=== PATIENT | female | born 2000 ===

== ENCOUNTER 2023-05-14 07:25 | Inpatient (IN) ==
[2023-05-14] MEDS ORDERED: LACTATED RINGER'S 1,000 ML IV PRN (07:31)
[2023-05-14] MEDS ORDERED: OXYTOCIN 30 UNITS/500 ML BAG IV PRN ×2 (07:31→15:39)
[2023-05-14] MEDS ORDERED: LIDOCAINE 1% LOCAL 20 ML VIAL INFIL PRN (07:31)
[2023-05-14 08:08] LABS: Hematocrit (blood only) 32.5 % (37.0-47.0); Hemoglobin 10.7 g/dl (12.0-16.0); Mean Corpuscular Hemoglobin 26.2 pg (25.0-34.0); Mean Corpuscular Hgb Conc 32.9 g/dL (32.0-36.0); Mean Corpuscular Volume 79.5 fL (80.0-100.0); Mean Platelet Volume 10.4 fL (9.4-12.4); Platelet Count 270 K/uL (130-400); RDW Coefficient of Variation 14.5 % (11.5-14.5); RDW Standard Deviation 41.4 fL (36.4-46.3); Red Blood Count 4.09 M/uL (4.20-5.40); White Blood Count 11.02 K/ul (4.8-10.8)
--- NOTE | 2023-05-14 08:17 | Anesthesiology Consultation ---
Date of Service May 14, 2023 Assessment & Plan Chart Review Chart Review: Acceptable Risk for Surgery and Patient NOT seen in Pre Admission Testing Consults Requested none ASA ASA2 Proposed Anesthesia Anesthesia Type: Labor Epidural and CSE History Height/Weight Height: 5 ft 2 in Weight: 67.807 kg Allergies Allergy/AdvReac Type Severity Reaction Status Date / Time No Known Allergies Allergy Verified 05/08/23 11:55 Medications Home Medications Medication Instructions Recorded Confirmed Last Taken prenat.vits,raleigh,zui-tnev-unobr 1 tab PO DAILY 11/03/22 05/14/23 05/13/23 19:00 ferrous sulfate 325 mg (65 mg 325 mg PO DAILY 05/06/23 05/14/23 05/13/23 19:00 iron) tablet (Iron (ferrous sulfate)) Exercise / Class Metabolic Activity II 4-5 Yardwork/Stairs/Walk up hill Past Family History Family History Mother Hypertension Father Hypertension Other Diabetes Past Surgical History Surgical History History of arthroscopy of hip S/P tonsillectomy Past Anesthesia History No Hx of Anesthesia Complications and No Family Hx of Anesthesia Complications History of PONV No Hx of PONV and No Hx of Motion Sickness Social History Smoking Status: Never smoker Do You Dip or Chew Tobacco: No Hx Alcohol Use: No Hx Substance Use: No substance use type: does not use Physical Exam Vital Signs Last Vital Signs Temp 37.1 C 05/14/23 07:42 Pulse 89 05/14/23 07:42 Resp 24 05/14/23 07:42 BP 113/71 05/14/23 07:42 Testing Laboratory Results 05/14/23 07:44
--- NOTE | 2023-05-14 15:09 | Delivery Summary ---
Vaginal Delivery Summary Date of Service May 14, 2023 Vaginal Delivery Summary Spontaneous vaginal delivery the patient arrived in active labor and wish to be unmedicated she was admitted group B strep negative she progressed to fully dilated and over several contractions delivered a baby in occiput anterior position fluid was clear gentle traction no excessive force live vigorous female no nuchal cord Cord blood was obtained after delayed cord clamping second-degree tear was repaired with 3-0 Vicryl placenta was delivered with gentle traction IM Pitocin was given sponge and instrument counts correct estimated blood loss 250 mL
[2023-05-14] MEDS ORDERED: OXYTOCIN 10 UNITS/ML 10ML VIAL IM ONE (15:39)
[2023-05-14] MEDS ORDERED: HYDROCORTISONE ACETATE 25 MG SUPP PR PRN (15:39)
[2023-05-14] MEDS ORDERED: DIPHTHERIA/TETANUS/PERTUSSIS Vaccine (Tdap, Age 7+yrs) 0.5mL SYR/VL IM ONE (15:39)
[2023-05-14] MEDS ORDERED: bisacodyL 10 MG SUPP PR PRN (15:39)
[2023-05-14] MEDS ORDERED: oxyCODONE/ACETAMINOPHEN 5mg/325mg TAB PO PRN (15:39)
[2023-05-14] MEDS ORDERED: BENZOCAINE 20% SPRY 85 APPLN/85 GM CAN EXT PRN (15:39)
[2023-05-14] MEDS ORDERED: ACETAMINOPHEN 325 MG TAB PO PRN (15:39)
[2023-05-14] MEDS: DOCUSATE SODIUM 100 MG CAP PO SCH (20:56)
[2023-05-14] MEDS: IBUPROFEN 600 MG TAB PO PRN (22:39)
[2023-05-15] MEDS: IBUPROFEN 600 MG TAB PO PRN ×2 (05:19→18:09)
[2023-05-15 06:09] LABS: Hematocrit (blood only) 30.6 % (37.0-47.0); Mean Corpuscular Hemoglobin 25.6 pg (25.0-34.0); Mean Corpuscular Hgb Conc 32.7 g/dL (32.0-36.0); Mean Corpuscular Volume 78.3 fL (80.0-100.0); Mean Platelet Volume 10.3 fL (9.4-12.4); Platelet Count 250 K/uL (130-400); Red Blood Count 3.91 M/uL (4.20-5.40); White Blood Count 14.34 K/ul (4.8-10.8)
--- NOTE | 2023-05-15 06:30 | Obstetrical Progress Note ---
Date of Service <Han Katz MD - Last Filed: 05/15/23 10:45> May 15, 2023 Assessment & Plan <Han Katz MD - Last Filed: 05/15/23 10:45> (1) (spontaneous vaginal delivery): Plan Vital Signs reviewed and WNL. (Tmax at 37.3) Hemoglobin Reviewed. 10.7 (05/14/23) 10.0 (today). - Blood Type: AB+, GBS-, Rubella Immune. - Pt is doing well clinically. - Encourage Ambulation, Monitor and Control pain with Motrin PRN, Resume regular diet, Monitor Lochia Encourage Breast Feeding. Pt counselled on discharge instructions (only if they are going home that day). <Feliz Martinez MD, FACOG - Last Filed: 05/15/23 14:23> (1) (spontaneous vaginal delivery): Subjective <Han Katz MD - Last Filed: 05/15/23 10:45> Ambulation: ambulating normally Voiding: no voiding problems and no incontinence Passing Gas:: No (not yet) Diet Tolerance:: regular diet Lochia:: Small Feeding Type:: breast feeding Current Pain Level(1-10): 7 (motrin is helping; patient feels the pain the most during ) 22 yo F presents s/p day 1 with some cramping pain that gets worse during . Max temp 37.3 Review of Systems All systems reviewed & are unremarkable except as noted in HPI & below Respiratory: no dyspnea Cardiovascular: no chest pain or no palpitations Breast: no breast pain Gastrointestinal: no nausea or no vomiting Musculoskeletal: + back pain (lower pain, worse with lying down; pt did not have epidural) Integumentary: no rash Neurologic: no tingling or no numbness good, just tired Physical Exam <Han Katz MD - Last Filed: 05/15/23 10:45> Constitutional WD/WN, vitals as above Respiratory normal respiratory effort, lungs clear to auscultation Cardiovascular RRR, no murmur, no edema Gastrointestinal (Abdomen) normal bowel sounds, soft, nontender, no hepatosplenomegaly (mild uterine tenderness in suprapubic area) Musculoskeletal Extremities: extremities normal to inspection (no calf tenderness noted) Results & Data <Han Katz MD - Last Filed: 05/15/23 10:45> Vital Signs (Past 12 Hours) Vital Signs Temp Pulse Resp BP Pulse Ox O2 Del Method 05/15/23 04:30 36.9 C 77 16 97/63 L 99 Room Air 05/15/23 00:50 36.7 C 86 18 107/69 97 Room Air 05/14/23 20:00 36.9 C 93 H 18 106/69 99 Room Air <Feliz Martinez MD, FACOG - Last Filed: 05/15/23 14:23> Co-Signing Physician Notes Resident Physician Supervision Note: I was present with [Name of resident] during the history and exam. I discu ssed the case with the resident and agree with the findings and plan as documented in the note. Any exceptions or clarifications are listed here: [None] Documented By: Feliz Martinez MD, FACOG
[2023-05-15] MEDS: DOCUSATE SODIUM 100 MG CAP PO SCH ×2 (08:54→20:34)
[2023-05-15] MEDS: PRENATAL VITAMIN 1 TAB PO SCH (08:54)
[2023-05-15] MEDS ORDERED: bisacodyL 5 MG TABEC PO SCH (20:00)
--- NOTE | 2023-05-16 05:47 | Obstetrical Progress Note ---
Date of Service <Han Katz MD - Last Filed: 05/16/23 07:52> May 16, 2023 Assessment & Plan <Han Katz MD - Last Filed: 05/16/23 07:52> (1) (spontaneous vaginal delivery): Plan Vital Signs reviewed and WNL. (Tmax at 37.3) Hemoglobin Reviewed. 10.7 (05/14/23) 10.0 (05/15/23). - Blood Type: AB+, GBS-, Rubella Immune. - Pt is doing well clinically. - Encourage Ambulation, Monitor and Control pain with Motrin PRN, Resume regular diet, Monitor Lochia Encourage Breast Feeding. Pt counselled on discharge instructions. <Ruchi Corado MD - Last Filed: 05/16/23 08:07> (1) (spontaneous vaginal delivery): Subjective <Han Katz MD - Last Filed: 05/16/23 07:52> Ambulation: ambulating normally (better than yesterday) Voiding: no voiding problems and no incontinence Passing Gas:: Yes Diet Tolerance:: regular diet Lochia:: Small (very very little; almost no more flow) Feeding Type:: breast feeding Current Pain Level(1-10): 2 (suprapubic area pain, improving) Respiratory: no dyspnea Cardiovascular: no chest pain or no palpitations Breast: no breast pain Gastrointestinal: no nausea or no vomiting Musculoskeletal: + back pain (lower pain, worse with lying down; pt did not have epidural) Integumentary: no rash Neurologic: no tingling or no numbness Physical Exam <Han Katz MD - Last Filed: 05/16/23 07:52> Constitutional WD/WN, vitals as above Respiratory normal respiratory effort, lungs clear to auscultation Cardiovascular RRR, no murmur, no edema Gastrointestinal (Abdomen) normal bowel sounds, soft, nontender, no hepatosplenomegaly (mild uterine tenderness in suprapubic area) Musculoskeletal Extremities: extremities normal to inspection (no calf tenderness noted) Results & Data <Han Katz MD - Last Filed: 05/16/23 07:52> Vital Signs (Past 12 Hours) Vital Signs Temp Pulse Resp BP Pulse Ox O2 Del Method 05/16/23 00:25 36.6 C 80 16 100/61 96 Room Air 05/15/23 20:35 36.6 C 82 18 111/74 98 Room Air <Ruchi Corado MD - Last Filed: 05/16/23 08:07> Co-Signing Physician Notes Resident Physician Supervision Note: I interviewed and examined the patient. Discussed with Dr. Katz and agree with findings and plan as documented in the note. Any exceptions or clarifications are listed here: [ ] Documented By: Ruchi Corado MD, FACOG
[2023-05-16] MEDS: PRENATAL VITAMIN 1 TAB PO SCH (09:02)
[2023-05-16] MEDS: IBUPROFEN 600 MG TAB PO PRN (09:02)
[2023-05-16] MEDS: DOCUSATE SODIUM 100 MG CAP PO SCH (09:02)
--- NOTE | 2023-05-17 14:47 | Communication Note ---
Date of Service: May 17, 2023 Patient had a w/o anesthetic services.
== END 2023-05-16 10:52 | disposition home or self-care (01) | DRG 807 ==
LOC: OPB 07:25 → 4S1 07:26 → 4E2 17:30